=== PATIENT | female | born 1955 | race Two or more races ===

== ENCOUNTER 2020-10-12 12:08 | Emergency (ER) | payer OTHER ==
[~2020-10-12] VITALS: Ht 167.6 cm; Wt 83.0 kg
[2020-10-12] MEDS ORDERED: VERELAN240 MG (12:32)
[2020-10-12] MEDS ORDERED: PEPCID40 MG (12:32)
[2020-10-12] MEDS ORDERED: HYDROCHLOROTHIA50 MG (12:32)
== END 2020-10-12 16:14 | disposition home or self-care (01) ==
LOC: ER 12:08
DX: R60.0 Localized edema (principal); M79.604 Pain in right leg